=== PATIENT | female | born 1970 | race Caucasian/White ===

== ENCOUNTER → 2021-08-04 | Outpatient (CLI) | payer BC ==
[~2021-08-04] MED LIST: CATHETER FLUSH 10 ML SYR IV PRN
--- NOTE | 2021-08-04 14:19 | Diagnostic Imaging Report ---
HEPATOBILIARY SCAN DATE: August 04, 2021. INDICATION: 50-year-old female, epigastric pain. PROCEDURE: 4.32 mCi of Tc-99m Choletec was administered intravenously and serial anterior planar images over the liver and upper abdomen were obtained. FINDINGS: There is clearance of background activity by the liver indicating hepatocellular function. There is radiotracer excretion into the bile ducts with filling of the gallbladder. There is radiotracer extension into small bowel. Ensure was administered. Gallbladder ejection fraction was calculated to be 37%. IMPRESSION: Normal hepatobiliary scan. No evidence of acute or chronic cholecystitis. Dictated by: Dictated on workstation # [id number]
== END ==
LOC: CARD 10:00
PROVIDERS: ATTEND Registered Nurse
DX: R10.13 Epigastric pain (principal); R19.7 Diarrhea, unspecified
CPT/HCPCS: 78227; A9537

== ENCOUNTER 2021-09-01 06:39 | Outpatient (CLI) | payer BC ==
[~2021-09-01] VITALS: Ht 152.4 cm; Wt 70.4 kg
[2021-09-02] MEDS ORDERED: BUDE10.2 IH (12:02)
[2021-09-02] MEDS ORDERED: FLUT16SP22 NS (12:02)
[2021-09-02] MEDS ORDERED: RT-ALBUINH IH (12:02)
== END 2021-09-02 12:23 | disposition home or self-care (01) ==
LOC: PREOP 06:39
PROVIDERS: ATTEND Surgery
DX: Z01.818 Encounter for other preprocedural examination (principal)

== ENCOUNTER 2021-09-08 08:16 | Day surgery (SDC) | payer BC ==
[2021-09-08] VITALS (11 sets, daily range): BP systolic 101–134; BP diastolic 60–89
[~2021-09-08] VITALS: Ht 152.4 cm; Wt 70.4 kg
[~2021-09-08 08:16] MED LIST changes: +BUDE10.2 IH; -CATHETER FLUSH 10 ML SYR IV PRN; +FLUT16SP22 NS; +RT-ALBUINH IH
[2021-09-08] MEDS: LACTATED RINGERS 1,000 ML IV PRN ×2 (08:30→10:46)
[2021-09-08] MEDS ORDERED: ceFAZolin 2 GM IV Premixed 50 ML ONE (08:44)
[2021-09-08] MEDS ORDERED: HYDR-3817 PO (08:48)
[2021-09-08] MEDS ORDERED: LIDOCAINE/EPI 1%-1:100,000 (XYLOCAINE) 20ML ONE ×2 (08:49→09:01)
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
--- NOTE | 2021-09-08 08:50 | Progress Note-Pre Operative ---
Pre-Operative Progress Note H&P Reviewed The H&P was reviewed, patient examined and no changes noted. Date Seen by Provider: Sep 08, 2021 Time Seen by Provider: 08:45 Date H&P Reviewed: Sep 08, 2021 Time H&P Reviewed: 08:40 Pre-Operative Diagnosis: Symptomatic Biliary Dyskinesia ALLISON SHEEHAN APRN Sep 08, 2021 08:50
[2021-09-08] MEDS ORDERED: HYDROcodone/APAP 5 MG/325 MG (LORTAB) TAB PO ONE (09:00)
[2021-09-08] MEDS ORDERED: ONDANSETRON 4 MG/2 ML (SDV) Z0FRAN IVP PRN ×2 (09:00→12:15)
[2021-09-08] MEDS ORDERED: morphine INJ 10 MG/ML 1ML (SYR OR VIAL) IVP PRN (09:00)
[2021-09-08] MEDS ORDERED: ACETAMINOPHEN 325 MG TABLET PO PRN (09:00)
[2021-09-08] MEDS ORDERED: ROCURONIUM 10 MG/ML 5 ML SYRINGE IV ONE (09:25)
[2021-09-08] MEDS ORDERED: GLYCOPYRROLATE 0.2 MG/ML (ROBINUL) 2 ML VIAL ONE (09:25)
[2021-09-08] MEDS ORDERED: fentaNYL INJ 100 MCG/2 ML AMP ONE (09:25)
[2021-09-08] MEDS ORDERED: proPOfol 200 MG/20 ML (DIPRIVAN) VIAL IV ONE (09:25)
[2021-09-08] MEDS ORDERED: LIDOCAINE PF 2% 5 ML (XYLOCAINE) VIAL ONE (09:25)
[2021-09-08] MEDS ORDERED: NEOSTIGMINE 3 MG/3 ML VIAL ONE (09:25)
[2021-09-08] MEDS ORDERED: ONDANSETRON 4 MG/2 ML (SDV) Z0FRAN ONE ×2 (09:25→12:27)
[2021-09-08] MEDS ORDERED: MIDAZOLAM 2 MG/2 ML (VERSED) VIAL ONE (09:26)
[2021-09-08] MEDS ORDERED: ceFAZolin 2 GM IV Premixed 50 ML IV ONE (09:45)
--- NOTE | 2021-09-08 11:51 | Progress Note-Post Operative ---
Post-Operative Progess Note Surgeon (s)/Roll Weigher (s) Surgeon HERMELINDO ERNST MD Roll Weigher: yoana mcclure [employer] Pre-Operative Diagnosis Symptomatic Biliary Dyskinesia Post-Operative Diagnosis same Procedure & Operative Findings Date of Procedure 09/08/21 Procedure Performed/Findings laparoscopic cholecystectomy. Anesthesia Type get Estimated Blood Loss Estimated blood loss (mL): minimal Specimens/Packing Specimens Removed gallbladder HERMELINDO ERNST MD Sep 08, 2021 11:51
[2021-09-08] MEDS ORDERED: SEVOFLURANE (ULTANE) 15 ML INHAL SOLN ONE (11:52)
[2021-09-08] MEDS ORDERED: morphine INJ 10 MG/ML 1ML (SYR OR VIAL) ONE (12:08)
[2021-09-08] MEDS ORDERED: morphine INJ 10 MG/ML 1ML (SYR OR VIAL) IVP ONE (12:15)
[2021-09-08] MEDS ORDERED: HYDROmorphone 2 MG/ML VIAL (DILAUDID) IV ONE (12:15)
--- NOTE | 2021-09-08 12:47 | OPERATIVE REPORT ---
DATE OF SERVICE: 09/08/2021 ATTENDING MOTHER HELPER: MANI Javier PREOPERATIVE DIAGNOSIS: Symptomatic biliary dyskinesia. POSTOPERATIVE DIAGNOSIS: Symptomatic biliary dyskinesia with findings suggestive of liver cirrhosis. PROCEDURE: Laparoscopic cholecystectomy. SURGEON: Hermelindo Ernst MD WIRE MESH FILTER FABRICATOR: Bert Clark APRN ANESTHESIA: General endotracheal. ESTIMATED BLOOD LOSS: Minimal. FINDINGS: Liver cirrhosis, distended gallbladder, no gallstones. DISPOSITION: The patient tolerated the procedure well. INDICATIONS: The patient is a 50-year-old female who was referred over to us for right upper abdominal quadrant pain and epigastric pain after eating meals. This has been occurring for the past few months and would have radiation towards the back as well. She also reports after eating a meal, she would feel bloating symptoms as well as diarrhea. She did undergo an ultrasound, which did not show any gallstones and she underwent a HIDA scan, which showed an ejection fraction of 37%, but she did have reproduction of symptoms with the administration of the Kinevac analogue consistent with symptomatic biliary dyskinesia. DESCRIPTION OF PROCEDURE: The patient was brought to the operating room, laid supine on the table. After adequate IV pain and sedative medications and general endotracheal intubation, the abdomen was prepped and draped in standard surgical fashion. A 0.5% Marcaine with epinephrine was used to anesthetize the overlying skin in the left upper abdominal quadrant and a transverse skin incision made using 15 blade. An 0 silk suture was applied to the medial aspect incision for retraction and the Veress needle inserted with a low opening pressure of 0 mmHg and the abdomen was then insufflated to 15 mmHg pressure. The Veress needle removed and a 5 mm XL trocar placed followed by a 5 mm 45-degree angle laparoscope visualizing the peritoneal cavity. A 4-quadrant abdominal exploration was performed. There was a distended gallbladder; however, no gallbladder wall thickening. There was a good visualization of liver cirrhosis. There were no discrete masses identified within the liver. Under direct visualization, we then proceeded to place a supraumbilical 10 mm port after the skin and peritoneal lining were anesthetized using 0.5% Marcaine with epinephrine and a transverse skin incision made using a 15 blade. In a similar manner, 2 right upper abdominal quadrant 5 mm ports were placed. The fundus of the gallbladder was then retracted anteriorly and superiorly. The patient was then placed in reverse Trendelenburg position as well as plane right side up, left side down. There were omental adhesions along the fundus of the gallbladder and the hepatoduodenal ligament was then dissected opened using blunt dissection as well as electrocautery on the hook instrument as well as a [place] dissector. The entire critical view of safety was identified including the triangle of Calot as well as the cystic duct and artery as only two structures going into the gallbladder as well as the cystic plate behind the proximal gallbladder. A timeout was then taken and the cystic duct and artery were then clipped proximally and distally and cut with EndoShears. The gallbladder was then dissected off the liver bed using electrocautery with visualization of good hemostasis as well as no leaking ducts of Luschka. The gallbladder was removed through the 10 mm port site using an EndoCatch bag. The 10 mm port site fascia and peritoneum were then closed under direct visualization using a Julio César-Jordy device and 0 Vicryl suture. The abdomen was desufflated and remaining ports removed. All skin incisions were closed using 4-0 Monocryl running subcuticular sutures. Wounds were then cleaned and covered with Dermabond. The patient tolerated the procedure well. We will start IV and oral pain medication as well as a clear liquid diet. Once she is tolerating clears, has good pain control with oral pain medications, ambulating well, we will discharge her home where she will be instructed to do no heavy lifting or exertion for the next two weeks. Job ID: [id number] DocumentID: [id number] Dictated Date: 09/08/2021 11:59:22 Millinery Worker Date: 09/08/2021 12:46:51 Dictated By: HERMELINDO ERNST MD [facility]
[2021-09-08] MEDS ORDERED: HYDROcodone/APAP 5 MG/325 MG (LORTAB) TAB ONE (12:49)
== END 2021-09-08 13:55 | disposition home or self-care (01) ==
LOC: SDC 08:16
PROVIDERS: ATTEND Surgery
DX: K81.1 Chronic cholecystitis (principal); K74.60 Unspecified cirrhosis of liver; K82.8 Other specified diseases of gallbladder; F17.210 Nicotine dependence, cigarettes, uncomplicated; J45.909 Unspecified asthma, uncomplicated; E66.9 Obesity, unspecified; Z68.30 Body mass index [BMI] 30.0-30.9, adult; Z79.899 Other long term (current) drug therapy
CPT/HCPCS: 87081; 88304

== ENCOUNTER 2023-02-11 08:56 | Emergency (ER) | payer SELFPAY ==
[~2023-02-11] VITALS: Ht 152 cm; Wt 64.0 kg
[~2023-02-11 08:56] MED LIST changes: +ALBU8.5H6 IH; +HYDR-3817 PO; -RT-ALBUINH IH
[2023-02-11 09:49] LABS: BASOPHILS % (AUTO) 1 % (0-10); EOSINOPHILS # (AUTO) 0.1 10^3/uL (0.0-0.3); EOSINOPHILS % (AUTO) 1 % (0-10); HEMATOCRIT 45 % (35-52); LYMPHOCYTES % (AUTO) 29 % (12-44); MEAN CORPUSCULAR HEMOGLOBIN 34 pg (25-34); MEAN CORPUSCULAR HGB CONC 36 g/dL (32-36); MEAN CORPUSCULAR VOLUME 95 fL (80-99); MEAN PLATELET VOLUME 10.1 fL (9.0-12.2); MONOCYTES # (AUTO) 0.8 10^3/uL (0.0-1.0); MONOCYTES % (AUTO) 11 % (0-12); NEUTROPHILS # (AUTO) 4.1 10^3/uL (1.8-7.8); NEUTROPHILS % (AUTO) 58 % (42-75); PLATELET COUNT 155 10^3/uL (130-400)
[2023-02-11 10:05] LABS: CHLORIDE 108 MMOL/L (98-107); POTASSIUM 3.6 MMOL/L (3.6-5.0); SODIUM 142 MMOL/L (135-145)
[2023-02-11 10:06] LABS: ALBUMIN 4.1 GM/DL (3.2-4.5)
[2023-02-11 10:07] LABS: CALCIUM 9.5 MG/DL (8.5-10.1)
[2023-02-11 10:08] LABS: GLUCOSE 89 MG/DL (70-105)
[2023-02-11 10:09] LABS: CARBON DIOXIDE 21 MMOL/L (21-32); TOTAL PROTEIN 7.8 GM/DL (6.4-8.2)
[2023-02-11 10:10] LABS: BILIRUBIN,TOTAL 0.6 MG/DL (0.1-1.0)
[2023-02-11 10:12] LABS: ALKALINE PHOSPHATASE 114 U/L (40-136); CREATININE SERUM 0.77 MG/DL (0.60-1.30); GFR ESTIMATED 93
[2023-02-11 10:13] LABS: BUN/CREATININE RATIO 9
[2023-02-11 10:15] LABS: ALANINE AMINOTRANSFERASE 142 U/L (0-55); SALICYLATE < 5.0 MG/DL (5.0-20.0)
[2023-02-11 10:19] LABS: ACETAMINOPHEN < 10 UG/ML (10-30)
[2023-02-11 10:46] LABS: BILIRUBIN,URINE NEGATIVE (NEGATIVE); CLARITY,URINE CLEAR; COLOR,URINE YELLOW; GLUCOSE, URINE (UA) NEGATIVE (NEGATIVE); KETONES,URINE NEGATIVE (NEGATIVE); LEUKOCYTE ESTERASE ,URINE NEGATIVE (NEGATIVE); NITRITE,URINE NEGATIVE (NEGATIVE); PH,URINE 6.5 (5-9); PROTEIN,URINE NEGATIVE (NEGATIVE)
[2023-02-11 10:53] LABS: BACTERIA,URINE NEGATIVE /HPF; SQUAMOUS EPITHELIAL CELL,UR 0-2 /HPF
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
[2023-02-11 11:01] LABS: AMPHETAMINE SCREEN, URINE NEGATIVE (NEGATIVE); BARBITURATE SCREEN URINE NEGATIVE (NEGATIVE); BENZODIAZEPINES SCREEN URINE NEGATIVE (NEGATIVE); CANNABINOID SCREEN, URINE NEGATIVE (NEGATIVE); COCAINE SCREEN URINE NEGATIVE (NEGATIVE); METHADONE STAT NEGATIVE (NEGATIVE); OPIATE SCREEN URINE NEGATIVE (NEGATIVE); OXYCODONE STAT NEGATIVE (NEGATIVE); PROPOXYPHENE STAT NEGATIVE (NEGATIVE); TRICYCLIC ANTIDEPRESSANTS SCRE NEGATIVE (NEGATIVE)
[2023-02-11] MEDS ORDERED: ACETAMINOPHEN 500 MG TAB (TYLENOL) PO ONE (11:45)
--- NOTE | 2023-02-11 12:01 | Diagnostic Imaging Report ---
PROCEDURE: CT head without contrast. TECHNIQUE: Multiple contiguous axial images were obtained through the brain without the use of intravenous contrast. Auto Exposure Controls were utilized during the CT exam to meet ALARA standards for radiation dose reduction. INDICATION: 52-year-old female, head pain, especially superior posterior regions. History of cervical cancer. CORRELATION: None FINDINGS: There is no midline shift or mass effect. The ventricles and sulci are unremarkable. No evidence for acute intracranial hemorrhage, abnormal extra-axial fluid collections or cerebral edema is present. The basilar cisterns are unremarkable. The bony calvarium is intact. The visualized paranasal sinuses and mastoid air cells are clear. IMPRESSION: Negative appearing noncontrast CT of the head. Dictated by: Dictated on workstation # [id number]
[2023-02-11] MEDS ORDERED: IBUPROFEN TABLET 200 MG TAB PO ONE (13:30)
[2023-02-11] MEDS ORDERED: LORazepam 0.5 MG (ATIVAN) TABLET PO STA ×2 (16:04→23:59)
[2023-02-11] MEDS ORDERED: NICOTINE 21 MG (NICODERM) PATCH TD ONE (16:15)
[2023-02-12] MEDS ORDERED: LORazepam 0.5 MG (ATIVAN) TABLET PO ONE (06:45)
[2023-02-12 10:35] VITALS: BP 105/61
== END 2023-02-12 10:35 ==
LOC: EDUNIT# 08:56 → ER 08:58
DX: R45.851 Suicidal ideations (principal); R45.850 Homicidal ideations; R44.1 Visual hallucinations; R44.0 Auditory hallucinations; F10.10 Alcohol abuse, uncomplicated; F17.210 Nicotine dependence, cigarettes, uncomplicated; Z20.822 Contact with and (suspected) exposure to COVID-19
CPT/HCPCS: 70450; 80053; 80306; 81000; 84443; 85025; 87636; 93005; 99283; G0480 ×3; 36415; 80320; 80329